=== PATIENT | female | born 1995 | race Caucasian/White ===

== ENCOUNTER 2019-10-12 13:26 | Emergency (ER) | payer OTHER, SELFPAY ==
--- NOTE | 2019-10-12 13:31 | ED.GENADULT ---
HPI - General Adult General Chief complaint: Upper Respiratory Infection Stated complaint: Possible Strep Time Seen by Provider: 10/12/19 13:47 Source: patient Mode of arrival: ambulatory Limitations: no limitations History of Present Illness HPI narrative: 24-year-old female patient presents to the [facility] with complaints of sore throat for the past 2 days. Patient states she is also had a little bit of a runny nose. Denies any fevers, ear pain, coughing, chest pain or shortness of breath. Denies any abdominal pain, nausea, vomiting or diarrhea. Patient states she has taken Sudafed as well as some ibuprofen for symptoms so far. Patient states that she did get a tonsillectomy last year and is highly prone to strep. Patient just requesting to be tested for strep today. Related Data Home Medications Medication Instructions Recorded Confirmed budesonide-formoterol [Symbicort] 2 puff INHALATION Q12H 10/12/19 10/12/19 montelukast [Singulair] 10 mg PO DAILY 10/12/19 10/12/19 norethindrone-e.estradiol-iron [Lo 1 tablet PO DAILY 10/12/19 10/12/19 Loestrin Fe] Allergies Allergy/AdvReac Type Severity Reaction Status Date / Time peanut Allergy Swelling Verified 10/12/19 13:44 of Lip/Tongue/Throat Review of Systems Review of Systems: Narrative: CONSTITUTIONAL: Denies fever, chills, or sweats. EYES: Denies visual changes, redness, or discharge. ENT: Positive rhinorrhea, denies congestion, positive sore throat, denies otalgia. CARDIOVASCULAR: Denies chest pain, palpitations, or edema. RESPIRATORY: Denies cough or dyspnea. GASTROINTESTINAL: Denies abdominal pain, nausea, vomiting, or diarrhea. GENITOURINARY: Denies dysuria or hematuria. SKIN: Denies rash or itching. MUSCULOSKELETAL: Denies back pain, joint pain, or myalgia. NEUROLOGIC: Denies headache, numbness, or weakness. PSYCHIATRIC: Denies anxiety or depression. 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 There is no relevant family history pertinent to the presenting complaint. Exam Narrative: Exam Narrative: GENERAL: Well-appearing, well-nourished, and in no acute distress. HEAD: Normocephalic, atraumatic. EYES: PERRLA and EOMI. ENT: Nares clear, no rhinorrhea or epistaxis. Mucous membranes moist. Posterior pharynx with some erythema but no tonsils are present. No exudates or lesions present. Bilateral TMs are clear no erythema or foreign bodies in the canal. NECK: Supple. No lymphadenopathy CHEST: Clear to auscultation. No respiratory distress. HEART: Regular rate and rhythm. No murmur heard. Normal peripheral pulses. ABDOMEN: Soft, nontender, nondistended, normal active bowel sounds. EXTREMITIES: Normal range of motion. No edema. SKIN: Warm, dry, no rash. NEURO: No focal deficits. Alert and oriented x3. Course Vital Signs Vital signs: Vital Signs Temperature 37.2 C 10/12/19 13:38 Pulse Rate 80 10/12/19 13:38 Respiratory Rate 16 10/12/19 13:38 Blood Pressure 138/72 10/12/19 13:38 Pulse Oximetry 98 10/12/19 13:38 Temperature 37.2 C 10/12/19 13:38 Pulse Rate 80 10/12/19 13:38 Respiratory Rate 16 10/12/19 13:38 Blood Pressure 138/72 10/12/19 13:38 Pulse Oximetry 98 10/12/19 13
[2019-10-12 13:38] VITALS: BP 138/72; PULSE 80; RESP 16; TEMP 37.2; O2SAT 98
== END 2019-10-12 13:56 | disposition home or self-care (01) ==
PROVIDERS: Emergency Provider Nurse Practitioner Family
DX: J02.9 Acute pharyngitis, unspecified (principal); J45.909 Unspecified asthma, uncomplicated
CPT/HCPCS: 87081; 87880; 99213; G0463